=== PATIENT | male | born 1940 | race Caucasian/White ===

== ENCOUNTER 2017-12-31 11:45 | Emergency (ER) | payer MEDICARE ==
[~2017-12-31] VITALS: Ht 170.2 cm; Wt 80.0 kg
[~2017-12-31 11:45] MED LIST: ASPIRIN LOW DOS81 MG PO; BROVANA; FISH OIL 1200 M1 CAP PO; LEVAQUIN500 MG PO; NAPROSYN500 MG PO; PREDNISONE20 MG PO; SERTRALINE25 MG PO; SIMVASTATIN20 MG PO; TAMSULOSIN
[2017-12-31 14:04] LABS: HEMATOCRIT 41.1 % (39.0-50.0); HEMOGLOBIN 13.7 g/dl (14.0-18.0); IMMATURE GRANULOCYTES 0.9 % (0.0-1.0); MEAN CELL VOLUME 97.6 fL CALC (80.0-100.0); MEAN CORPUSCULAR HGB 32.5 pG CALC (26.0-32.0); MEAN CORPUSCULAR HGB CONC 33.3 g/L CALC (32.0-36.0); NEUT# 3.86 thou/uL (1.82-7.42); RED BLOOD COUNT 4.21 mill/uL (4.70-6.10); RED CELL DISTRI WIDTH 13.1 % (11.5-15.5)
[2017-12-31] MEDS ORDERED: ZPAK PO (14:48)
[2017-12-31] MEDS ORDERED: MEDDOSEPAK PO (14:48)
[2017-12-31 14:50] VITALS: BP 120/57
== END 2017-12-31 14:53 | disposition home or self-care (01) ==
LOC: ED 11:45
PROVIDERS: Emergency Medicine
DX: R04.2 Hemoptysis (principal); J44.9 Chronic obstructive pulmonary disease, unspecified; E78.00 Pure hypercholesterolemia, unspecified; Z85.46 Personal history of malignant neoplasm of prostate; Z86.19 Personal history of other infectious and parasitic diseases